=== PATIENT | male | born 1975 | race Hispanic/Latino ===

== ENCOUNTER → 2023-09-28 | Outpatient (CLI) | payer OTHER ==
[~2023-09-28] VITALS: Ht 161.3 cm; Wt 78.9 kg
[2023-09-28 14:22] VITALS: BP 122/56; PULSE 61; RESP 18
[2023-09-28 14:33] LABS: BASOPHILS # (AUTO) 0.06 K/uL (0.00-0.20); BASOPHILS % (AUTO) 0.8 % (0.0-5.0); EOSINOPHILS % (AUTO) 2.6 % (0.0-8.0); HEMATOCRIT 44.9 % (42-54); IMMATURE GRANULOCYTE ABSOLUTE 0.03 K/uL (0-1); LYMPHOCYTES # (AUTO) 2.8 K/uL (1.0-4.8); LYMPHOCYTES % (AUTO) 36.6 % (21.0-51.0); MEAN CORPUSCULAR HEMOGLOBIN 30.4 pg (27.0-33.0); MEAN CORPUSCULAR HGB CONC 33.9 g/dL (32.0-36.0); MEAN CORPUSCULAR VOLUME 89.8 fL (79-99); MONOCYTES # (AUTO) 0.7 K/uL (0.1-1.0); MONOCYTES % (AUTO) 9.2 % (3.0-13.0); NEUTROPHILS # (AUTO) 3.8 K/uL (1.8-7.7); NEUTROPHILS % (AUTO) 50.4 % (40.0-77.0); PLATELET COUNT (AUTO) 123 K/uL (130-400); RED CELL DISTRIBUTION WIDTH 13.6 % (11.0-15.5); WHITE BLOOD COUNT (AUTO) 7.6 K/uL (4.8-10.8)
[2023-09-28 14:40] LABS: CREATININE 0.9 mg/dL (0.5-1.5); POTASSIUM 4.5 mmol/L (3.5-5.1)
== END | disposition home or self-care (01) ==
LOC: DAH 10:00 → EEVIPCON 15:00 → EDSTATUS 10-16 08:00
PROVIDERS: ATTEND Surgery
DX: K40.90 Unilateral inguinal hernia, without obstruction or gangrene, not specified as recurrent (principal)
CPT/HCPCS: 80048; 85025; 36415; A6260

== ENCOUNTER 2023-10-16 07:37 | Day surgery (SDC) | payer OTHER ==
[~2023-10-16] VITALS: Ht 160 cm; Wt 80.2 kg
[2023-10-16] VITALS (19 sets, daily range): BP systolic 120–142; BP diastolic 68–108; PULSE 58–74; RESP 13–18; TEMP 98.1
[2023-10-16 08:48] LABS: BASOPHILS # (AUTO) 0.04 K/uL (0.00-0.20); BASOPHILS % (AUTO) 0.5 % (0.0-5.0); EOSINOPHILS # (AUTO) 0.19 K/uL (0.00-0.70); EOSINOPHILS % (AUTO) 2.2 % (0.0-8.0); HEMATOCRIT 44.2 % (42-54); IMMATURE GRANULOCYTE ABSOLUTE 0.02 K/uL (0-1); LYMPHOCYTES # (AUTO) 3.1 K/uL (1.0-4.8); LYMPHOCYTES % (AUTO) 35.9 % (21.0-51.0); MEAN CORPUSCULAR HEMOGLOBIN 30.6 pg (27.0-33.0); MEAN CORPUSCULAR HGB CONC 35.1 g/dL (32.0-36.0); MEAN CORPUSCULAR VOLUME 87.4 fL (79-99); MONOCYTES # (AUTO) 0.6 K/uL (0.1-1.0); MONOCYTES % (AUTO) 6.5 % (3.0-13.0); NEUTROPHILS # (AUTO) 4.8 K/uL (1.8-7.7); NEUTROPHILS % (AUTO) 54.7 % (40.0-77.0); PLATELET COUNT (AUTO) 130 K/uL (130-400); RED BLOOD CELL COUNT(AUTO) 5.06 MIL/uL (4.50-6.20); RED CELL DISTRIBUTION WIDTH 13.2 % (11.0-15.5); WHITE BLOOD COUNT (AUTO) 8.7 K/uL (4.8-10.8)
[2023-10-16] MEDS ORDERED: LACTATED RINGERS 1000ML 1,000 ML IV ONE (09:01)
[2023-10-16] MEDS ORDERED: CEFAZOLIN SODIUM 2 GM VIAL ONE (09:01)
[2023-10-16 09:10] LABS: CREATININE 0.9 mg/dL (0.5-1.5); POTASSIUM 4.5 mmol/L (3.5-5.1)
[2023-10-16] MEDS ORDERED: ACETAMINOPHEN 1,000 MG/100 ML VIAL IV ONE (11:31)
[2023-10-16] MEDS ORDERED: LIDOCAINE PF 100MG/5ML (2%) SYRINGE 5ML ONE (11:35)
[2023-10-16] MEDS ORDERED: MIDAZOLAM HCL 1 MG/ML 2ML VIAL ONE (11:35)
[2023-10-16] MEDS ORDERED: PROPOFOL 10 MG/ML 20ML VIAL IV ONE (11:35)
[2023-10-16] MEDS ORDERED: ROCURONIUM BROMIDE 10MG/1ML 5ML VL ONE (11:36)
[2023-10-16] MEDS ORDERED: FENTANYL CITRATE PF 50 MCG/1 ML 2ML VIAL ONE (11:36)
[2023-10-16] MEDS ORDERED: CEFAZOLIN SODIUM 2 GM VIAL IVPB ONE (12:26)
[2023-10-16] MEDS ORDERED: ONDANSETRON 4MG INJ ONE ×2 (12:26→14:23)
[2023-10-16] MEDS ORDERED: DEXAMETHASONE SOD PHOSPHATE 10MG/ML 1ML VIAL ONE (12:26)
[2023-10-16] MEDS ORDERED: PHENYLEPHRINE HCL 10 MG/ML 1ML VIAL IV ONE (12:32)
[2023-10-16] MEDS ORDERED: GLYCOPYRROLATE 0.2 MG/ML 5 ML VIAL ONE (13:09)
[2023-10-16] MEDS ORDERED: NEOSTIGMINE METHYLSULFATE 1MG/ML IV ONE (13:09)
[2023-10-16] MEDS ORDERED: MEPERIDINE-PF 25 MG/ML SYG ONE ×2 (14:22→14:23)
[2023-10-16] MEDS ORDERED: IBUPROFEN 800 MG TAB ONE (15:25)
== END 2023-10-16 15:45 | disposition home or self-care (01) ==
LOC: DAH 07:37
PROVIDERS: ATTEND Surgery
DX: K40.90 Unilateral inguinal hernia, without obstruction or gangrene, not specified as recurrent (principal); F17.210 Nicotine dependence, cigarettes, uncomplicated; Z79.899 Other long term (current) drug therapy
CPT/HCPCS: 49505; 80048; 85025; 36415; A4663; J7030; A4452; A4344; J7120; J3010; J1100; J3490 ×2; J2001; J2250; J2704; J2405 ×2; J2710; J2175 ×2; J2371; J0690 ×2; C1781; A4930; A4215; A4223; A4222; A4221; A4600